=== PATIENT | female | born 1970 | race African-American/Black ===

== ENCOUNTER → 2016-10-18 | Outpatient (CLI) | payer OTHER ==
--- NOTE | ~2016-10-18 | MR165 ---
[facility] A Service of [facility] [place] RADIOLOGY TEXT RESULTS PATIENT: LENA LACY LOCATION: [facility] : 70 UNIT #: [id number] AGE: [address]: LISSETT DE LA TORRE SEX: F ORDER DR: [id number] [address] [address] [id number] O MR#: [id number] Acc #: [id number] NAME: LENA LACY : 1970 SEX: F STUDY DATE/TIME: 10/18/2016 12:25 UNIT: [facility] ROOM: STUDY DESCRIPTION: MR Shoulder Wo Contrast Rt Attending Physician: Lissett De La Torre Aprn Referring Physician: Lissett De La Torre Aprn Ordering Physician: Lissett De La Torre Aprn Primary Care Physician: Lissett De La Torre Aprn MRI CENTER REPORT This report is preliminary unless electronic signature is present. EXAM MRI right shoulder; 10/18/2016. COMPARISON Right shoulder radiographs, 10/18/2016. HISTORY Order states right shoulder pain for 3 weeks, started after falling from a hover board. X-ray within normal limits. No relief with NSAIDs. History sheet states fell off a hover board 08/24/2016. Continued pain with limited range of motion. Large body habitus with limited positioning. No related surgery. The AC joint demonstrates minimal capsuloligamentous thickening but no high-grade arthrosis or evidence of recent injury. Coracoclavicular and coracoacromial ligaments are intact. There is high-grade tendinosis and/or partial articular-sided tear of the posterior half to third of the supraspinatus tendon without a full-thickness tear seen. There is moderate inflammation in the subacromial-subdeltoid bursa. If this does reflect a partial tear, it is estimated at approximately 50% in thickness. MR arthrography could provide further characterization. The injection would have to be performed at another facility such as [facility] or [facility] with scanning at [facility], if the patient is not a candidate for the closed bore scanners at those 2 sites. Subscapularis, infraspinatus, and teres minor tendons are intact. Biceps anchor, biceps tendon, and glenoid labrum are within normal limits. There is a moderate complex signal glenohumeral effusion with debris and/or loose bodies present. There is no obvious glenohumeral high-grade STS. [facility] A Service of [facility] & [facility] [place] RADIOLOGY TEXT RESULTS PATIENT: LENA LACY LOCATION: [facility] : 70 UNIT #: [id number] AGE: [address]: LISSETT DE LA TORRE SEX: F ORDER DR: chondromalhubert. The appearance is not typical for primary synovial chondromatosis, as these do not have a "rice body" appearance. Etiology is indeterminant, but would most likely be secondary to articular cartilage injury or chondromalacia. There is no marrow lesion or fracture. There is no muscle atrophy or strain. IMPRESSION 1. Marked tendinosis versus partial articular-sided tear of the posterior third of the supraspinatus tendon with no full-thickness tear demonstrated. See above comments. 2. Mild inflammation subacromial-subdeltoid bursa. 3. Minimal AC joint capsuloligamentous thickening but no evidence of high-grade arthrosis or recent injury. 4. Moderate glenohumeral effusion with numerous intraarticular loose bodies without specific etiology demonstrated. See above discussion. 5. Labrum and biceps are intact. 6. No fracture or bone contusion. Dictated by... Consuelo Coles M.D. THIS IS AN ELECTRONICALLY VERIFIED REPORT Consuelo Coles M.D. at 10/20/2016 11:18 AM ANDRIA/german TD: 10/19/2016 16:51 JOB #: [id number] MRI CENTER REPORT Page 1 of 1
== END | disposition home or self-care (01) ==
LOC: SMRI 09:30
DX: M25.511 Pain in right shoulder (principal); M75.51 Bursitis of right shoulder; M25.411 Effusion, right shoulder; M24.011 Loose body in right shoulder
CPT/HCPCS: 73221